=== PATIENT | male | born 1930 | race Caucasian/White ===

== ENCOUNTER 2018-01-28 00:45 | Inpatient (IN) ==
[2018-01-28] MEDS ORDERED: ETOMIDATE 20 MG/10 ML VIAL IV STA (01:07)
[2018-01-28] MEDS ORDERED: ROCURONIUM 100 MG/10 ML VIAL IV STA (01:07)
[2018-01-28] MEDS ORDERED: PROPOFOL 1,000 MG/100 ML BOTTLE IV ONE (01:08)
[2018-01-28 01:17] LABS: Basophils # 0.1 10*3/uL (0.0-0.2); Basophils % 0.3 % (0.0-0.8); Hemoglobin 10.5 GM/DL (14.0-18.0); Immature Granulocytes % 1.4 %; Immature Granulocytes Absolute 0.45 #; Lymphocytes # 6.4 10*3/uL (1.4-4.0); Lymphocytes % 19.5 % (21.2-54.2); Mean Corpuscular HGB Conc 32.8 GM/DL (32-36); Mean Corpuscular Hemoglobin 27 PG (27-34); Mean Corpuscular Volume 81.8 FL (87-102); Mean Platelet Volume 10.3 FL (9.6-12.0); Monocytes # 1.3 10*3/uL (0.11-0.8); Neutrophils # 24.6 10*3/uL (1.4-7.4); Neutrophils % 74.8 % (38.7-73.9); Platelet Count 438 T/CUMM (130-400); Red Blood Count 3.91 MC/CUMM (3.8-5.5); Red Cell Distribution Width 19.1 % (9.3-17.3); White Blood Count 32.9 T/CUMM (4-12)
[2018-01-28] MEDS: PROPOFOL 1,000 MG/100 ML BOTTLE IV SCH ×3 (01:19→22:00)
[2018-01-28 01:29] LABS: INR 1.1; PT Patient Result 11.2 SECS
[2018-01-28 01:45] LABS: Alanine Aminotransferase 22 U/L (16-61); Albumin 2.3 G/DL (3.4-5.0); Alkaline Phosphatase 99 U/L (45-117); Aspartate Amino Transferase 30 U/L (0-37); Bilirubin,Total < 0.39 MG/DL (0.2-1.0); Blood Urea Nitrogen 37 MG/DL (7-18); Calcium 8.8 MG/DL (8.5-10.1); Glucose 321 MG/DL (74-106); Osmolality,Calculated 290.1 MOS/KG (273-304); Potassium 4.1 MMOL/L (3.5-5.1); Sodium 135 MMOL/L (136-145); Total Protein 7.5 G/DL (6.4-8.3)
[2018-01-28 01:46] LABS: Troponin I Only 0.979 NG/ML (0.00-0.045)
[2018-01-28] MEDS ORDERED: LEVOFLOXACIN INJ 750 MG in PREMIX 1 EACH IV STA (01:48)
[2018-01-28] MEDS ORDERED: PIPERACILLIN/TAZOBACTAM 3,375 MG in SODIUM CHLORIDE 0.9% 100 ML IV STA (01:48)
[2018-01-28] MEDS ORDERED: VANCOMYCIN INJ 1,000 MG in SODIUM CHLORIDE 0.9% 250 ML IV STA (01:48)
[2018-01-28] MEDS ORDERED: SODIUM CHLORIDE 0.9% 500 ML IV ONE (01:51)
[2018-01-28 01:55] LABS: Allen Test Positive; Pt O2 Delivery Device Ventilator
[2018-01-28 01:57] LABS: ABG Base Excess -0.9 MMOL/L (-2.5-2.5); ABG HCO3 26.9 MMOL/L (20-26); ABG PCO2 56.9 MM HG (35-48); ABG PH 7.292 (7.35-7.45); ABG PO2 73.8 MM HG (80-95); ABG TCO2 28.6 MMOL/L (23-27)
[2018-01-28] MEDS ORDERED: SODIUM CHLORIDE 0.9% 100 ML IV ONE (02:10)
[2018-01-28] MEDS ORDERED: PIPERACILLIN/TAZOBACTAM 3,375 MG VIAL IV ONE (02:10)
[2018-01-28 02:40] LABS: Lactic Acid 2.9 MMOL/L (0.4-2.0)
[2018-01-28] MEDS ORDERED: SODIUM CHLORIDE 0.9% 1,000 ML IV ONE (02:58)
[2018-01-28] MEDS ORDERED: LEVOFLOXACIN INJ 0 ML IV ONE (03:02)
[2018-01-28] MEDS ORDERED: VANCOMYCIN 1,000 MG VIAL ONE (03:02)
[2018-01-28 03:13] LABS: Band Neutrophils 2 % (0-10); Lymphocytes 23 % (20-55); Segmented Neutrophils 72 % (50-85); Total Cells Counted 100
[2018-01-28 03:20] LABS: ABG HCO3 25.5 MMOL/L (20-26); ABG Oxygen Saturation 99.1 % (95-100); ABG PCO2 51.4 MM HG (35-48); ABG PH 7.314 (7.35-7.45); ABG PO2 207.9 MM HG (80-95); ABG TCO2 27.1 MMOL/L (23-27)
[2018-01-28] MEDS ORDERED: ALBUTEROL 2.5 MG/3 ML NEB RESP TX PRN (03:31)
[2018-01-28] MEDS ORDERED: ONDANSETRON 4 MG/2 ML VIAL IV PRN (03:37)
[2018-01-28] MEDS ORDERED: ROCURONIUM 100 MG/10 ML VIAL IV ONE ×2 (03:40→16:01)
[2018-01-28] MEDS ORDERED: ETOMIDATE 20 MG/10 ML VIAL IV ONE (03:40)
[2018-01-28] MEDS ORDERED: VECURONIUM 10 MG VIAL IV STA (03:49)
[2018-01-28] MEDS ORDERED: VECURONIUM 10 MG VIAL IV ONE (03:50)
[2018-01-28] MEDS ORDERED: DEXTROSE 50% 25 GM/50 ML VIAL IV PRN (03:57)
[2018-01-28] MEDS ORDERED: MAGNESIUM SULF RIDER 4 GM in PREMIX 1 EACH IV PRN (03:57)
[2018-01-28] MEDS ORDERED: POTASSIUM CHLORIDE RIDER 10 MEQ in PREMIX 1 EACH IV PRN (03:57)
[2018-01-28] MEDS ORDERED: MAGNESIUM SULF RIDER 2 GM in PREMIX 1 EACH IV PRN (03:57)
[2018-01-28] MEDS ORDERED: GLUCAGON 1 MG VIAL IM PRN (03:57)
[2018-01-28] MEDS ORDERED: MIDAZOLAM 100 MG in SODIUM CHLORIDE 0.9% 80 ML IV SCH (04:00)
[2018-01-28 04:05] LABS: Elliptocytes Few; Hypochromasia 1+; Platelet Estimate Normal
[2018-01-28 04:06] LABS: Giant Platelets Few
[2018-01-28] MEDS ORDERED: INSULIN REGULAR 100 UNIT/ML SUBCUT SCH ×2 (06:00→10:00)
[2018-01-28] MEDS: MIDAZOLAM 100 MG in SODIUM CHLORIDE 0.9% 80 ML IV SCH (06:30)
[2018-01-28] MEDS: SODIUM CHLORIDE 0.9% 1,000 ML IV SCH ×2 (06:51→16:00)
[2018-01-28] MEDS ORDERED: INSULIN REGULAR 100 UNIT/ML ONE (06:53)
[2018-01-28 07:42] LABS: Basophils # 0.1 10*3/uL (0.0-0.2); Basophils % 0.3 % (0.0-0.8); Hemoglobin 9.7 GM/DL (14.0-18.0); Immature Granulocytes % 1.3 %; Lymphocytes % 16.4 % (21.2-54.2); Mean Corpuscular HGB Conc 31.3 GM/DL (32-36); Mean Corpuscular Hemoglobin 27 PG (27-34); Mean Corpuscular Volume 86.1 FL (87-102); Mean Platelet Volume 9.9 FL (9.6-12.0); Monocytes # 0.3 10*3/uL (0.11-0.8); Neutrophils # 24.5 10*3/uL (1.4-7.4); Platelet Count 355 T/CUMM (130-400); Red Cell Distribution Width 18.9 % (9.3-17.3); White Blood Count 30.3 T/CUMM (4-12)
[2018-01-28 07:48] LABS: ABG Base Excess -2.7 MMOL/L (-2.5-2.5); ABG HCO3 22.2 MMOL/L (20-26); ABG Oxygen Saturation 98.9 % (95-100); ABG PCO2 48.7 MM HG (35-48); ABG TCO2 22.1 MMOL/L (23-27); Allen Test Positive; Pt O2 Delivery Device Ventilator
[2018-01-28 08:15] LABS: Albumin 1.9 G/DL (3.4-5.0); Bilirubin,Total 0.4 MG/DL (0.2-1.0); Calcium 8.1 MG/DL (8.5-10.1); Osmolality,Calculated 293.8 MOS/KG (273-304); Potassium 3.9 MMOL/L (3.5-5.1); Total Protein 6.6 G/DL (6.4-8.3)
[2018-01-28 08:19] LABS: Band Neutrophils 10 % (0-10); Hypochromasia 1+; Lymphocytes 15 % (20-55); Segmented Neutrophils 74 % (50-85); Total Cells Counted 100
[2018-01-28 08:20] LABS: Microcytosis 1+; Platelet Estimate Normal; Troponin I Only 2.78 NG/ML (0.00-0.045)
[2018-01-28] MEDS: FUROSEMIDE 40 MG/4 ML VIAL IV SCH ×2 (09:22→17:00)
[2018-01-28] MEDS: MEROPENEM 1,000 MG in SYRINGE 1 EACH IV SCH ×2 (09:34→21:30)
[2018-01-28] MEDS: PANTOPRAZOLE 40 MG VIAL IV SCH (09:39)
[2018-01-28] MEDS: methylPREDNISolone SOD SUC 40 MG/1 ML VIAL IV SCH ×2 (09:40→17:01)
[2018-01-28] MEDS: ENOXAPARIN 40 MG/0.4 ML SYRINGE SUBCUT SCH (09:41)
[2018-01-28] MEDS: INSULIN GLARGINE 100 UNIT/ML SUBCUT SCH (09:41)
[2018-01-28] MEDS ORDERED: PIPERACILLIN/TAZOBACTAM 3,375 MG in SODIUM CHLORIDE 0.9% 100 ML IV SCH (10:15)
[2018-01-28] MEDS: INSULIN REGULAR 100 UNIT/ML SUBCUT SCH ×3 (12:00→20:34)
[2018-01-28] MEDS ORDERED: LIDOCAINE 2% TOP JELLY 20 ML VIAL INTRAURETH ONE (12:15)
[2018-01-28] MEDS ORDERED: SEVOFLURANE 1 UNIT/15 MINUTE INH ONE (16:00)
[2018-01-28] MEDS ORDERED: PROPOFOL 200 MG/20 ML VIAL IV ONE (16:00)
[2018-01-28] MEDS ORDERED: MIDAZOLAM 2 MG/2 ML VIAL ONE (16:01)
[2018-01-28] MEDS ORDERED: fentaNYL 100 MCG/2 ML VIAL ONE (16:01)
[2018-01-28 20:44] LABS: Apearance,Urine CLOUDY (Clear); Bilirubin,Urine Negative (Negative); Blood, Urine Large mg/dL (Negative); Glucose,Urine (UA) 50 mg/dL (Negative); Hyaline Casts,Urine 8 /LPF (0-3); Ketones,Urine Negative (Negative); Mucus,Urine Occasional /LPF (Occasional); Nitrite,Urine Negative (Negative); Protein,Urine 100 MG/DL; RBC,Urine 1363 /HPF (0-4); Urine Color Red (Yellow); Urine Urobilinogen < 2.0 EU/DL (0.2-1.0); WBC,Urine 23 /HPF (0-6)
[2018-01-29] MEDS: SODIUM CHLORIDE 0.9% 1,000 ML IV SCH ×5 (00:27→22:14)
[2018-01-29] MEDS: INSULIN REGULAR 100 UNIT/ML SUBCUT SCH ×6 (00:37→20:44)
[2018-01-29] MEDS: methylPREDNISolone SOD SUC 40 MG/1 ML VIAL IV SCH ×3 (00:38→16:13)
[2018-01-29] MEDS: LEVOFLOXACIN INJ 750 MG in PREMIX 1 EACH IV SCH (03:05)
[2018-01-29 04:34] LABS: Allen Test Positive; Pt O2 Delivery Device Ventilator
[2018-01-29 04:38] LABS: ABG Base Excess -0.9 MMOL/L (-2.5-2.5); ABG HCO3 23.3 MMOL/L (20-26); ABG Oxygen Saturation 99.2 % (95-100); ABG PCO2 36.9 MM HG (35-48); ABG PH 7.419 (7.35-7.45); ABG PO2 189.6 MM HG (80-95); ABG TCO2 24.5 MMOL/L (23-27)
[2018-01-29] MEDS: MIDAZOLAM 100 MG in SODIUM CHLORIDE 0.9% 80 ML IV SCH (05:27)
[2018-01-29 05:48] LABS: Basophils % 0.2 % (0.0-0.8); Hematocrit 26.6 VOL% (42.0-52.0); Hemoglobin 8.3 GM/DL (14.0-18.0); Immature Granulocytes % 1.7 %; Immature Granulocytes Absolute 0.41 #; Lymphocytes # 5.2 10*3/uL (1.4-4.0); Lymphocytes % 21.3 % (21.2-54.2); Mean Corpuscular HGB Conc 31.2 GM/DL (32-36); Mean Corpuscular Hemoglobin 26 PG (27-34); Mean Corpuscular Volume 83.6 FL (87-102); Mean Platelet Volume 10.3 FL (9.6-12.0); Monocytes # 0.3 10*3/uL (0.11-0.8); Monocytes % 1.1 % (1.7-12.7); Neutrophils # 18.6 10*3/uL (1.4-7.4); Neutrophils % 75.7 % (38.7-73.9); Platelet Count 318 T/CUMM (130-400); Red Blood Count 3.18 MC/CUMM (3.8-5.5); Red Cell Distribution Width 18.9 % (9.3-17.3); White Blood Count 24.6 T/CUMM (4-12)
[2018-01-29 06:06] LABS: Band Neutrophils 2 % (0-10); Giant Platelets Few; Hypochromasia 1+; Lymphocytes 18 % (20-55); Microcytosis Slight; Ovalocytes Slight; Platelet Estimate Adequate; Segmented Neutrophils 79 % (50-85); Total Cells Counted 100
[2018-01-29 06:15] LABS: Calcium 7.7 MG/DL (8.5-10.1); Osmolality,Calculated 291.4 MOS/KG (273-304); Potassium 3.1 MMOL/L (3.5-5.1)
[2018-01-29] MEDS ORDERED: MAGNESIUM SULF RIDER 2 GM in PREMIX 1 EACH IV ONE (08:12)
[2018-01-29] MEDS ORDERED: FUROSEMIDE 20 MG/2 ML VIAL ONE (08:25)
[2018-01-29] MEDS: INSULIN GLARGINE 100 UNIT/ML SUBCUT SCH (08:57)
[2018-01-29] MEDS: FUROSEMIDE 40 MG/4 ML VIAL IV SCH ×2 (08:59→16:05)
[2018-01-29] MEDS: PANTOPRAZOLE 40 MG VIAL IV SCH (09:04)
[2018-01-29] MEDS: MEROPENEM 1,000 MG in SYRINGE 1 EACH IV SCH ×2 (09:07→22:04)
[2018-01-29] MEDS: PROPOFOL 1,000 MG/100 ML BOTTLE IV SCH ×2 (13:30→21:31)
[2018-01-29] MEDS: ENOXAPARIN 40 MG/0.4 ML SYRINGE SUBCUT SCH (16:04)
[2018-01-29] MEDS ORDERED: METOPROLOL TARTRATE 5 MG/5 ML VIAL IV ONE ×2 (18:17→18:19)
[2018-01-29] MEDS ORDERED: fentaNYL 100 MCG/2 ML VIAL IV ONE (19:57)
[2018-01-30] MEDS: INSULIN REGULAR 100 UNIT/ML SUBCUT SCH ×6 (00:08→20:53)
[2018-01-30] MEDS: methylPREDNISolone SOD SUC 40 MG/1 ML VIAL IV SCH ×3 (01:47→17:00)
[2018-01-30] MEDS: PROPOFOL 1,000 MG/100 ML BOTTLE IV SCH ×3 (02:37→18:56)
[2018-01-30] MEDS: LEVOFLOXACIN INJ 750 MG in PREMIX 1 EACH IV SCH (03:32)
[2018-01-30 03:38] LABS: ABG Base Excess 3.8 MMOL/L (-2.5-2.5); ABG HCO3 26.7 MMOL/L (20-26); ABG Oxygen Saturation 98.9 % (95-100); ABG PCO2 33.3 MM HG (35-48); ABG PH 7.522 (7.35-7.45); ABG PO2 167.2 MM HG (80-95); ABG TCO2 27.7 MMOL/L (23-27); Allen Test Positive; Pt O2 Delivery Device Ventilator
[2018-01-30 05:53] LABS: Osmolality,Calculated 305.1 MOS/KG (273-304); Potassium 2.7 MMOL/L (3.5-5.1)
[2018-01-30] MEDS ORDERED: POTASSIUM CHLORIDE INJ 50 MEQ in SODIUM CHLORIDE 0.9% 500 ML IV SCH (07:00)
[2018-01-30] MEDS: MIDAZOLAM 100 MG in SODIUM CHLORIDE 0.9% 80 ML IV SCH (07:09)
[2018-01-30] MEDS: SODIUM CHLORIDE 0.9% 1,000 ML IV SCH ×3 (07:30→16:04)
[2018-01-30] MEDS ORDERED: MIDAZOLAM 100 MG in SODIUM CHLORIDE 0.9% 80 ML IV PRN (09:00)
[2018-01-30] MEDS: ENOXAPARIN 40 MG/0.4 ML SYRINGE SUBCUT SCH (09:33)
[2018-01-30] MEDS: PANTOPRAZOLE 40 MG VIAL IV SCH (09:35)
[2018-01-30] MEDS: FUROSEMIDE 40 MG/4 ML VIAL IV SCH ×2 (09:35→17:00)
[2018-01-30] MEDS: INSULIN GLARGINE 100 UNIT/ML SUBCUT SCH (09:35)
[2018-01-30] MEDS: POTASSIUM CHLORIDE 20 MEQ/15 ML UDCUP PER TUBE SCH ×4 (09:36→20:53)
[2018-01-30] MEDS: ACETAMINOPHEN/CODEINE 120-12 MG/5 ML 12.5 ML UDCUP PO PRN ×3 (09:36→17:01)
[2018-01-30] MEDS: MEROPENEM 1,000 MG in SYRINGE 1 EACH IV SCH ×2 (09:36→20:53)
[2018-01-30] MEDS: ZINC OXIDE PASTE 113 GM TUBE TOP SCH ×2 (12:08→20:54)
[2018-01-30] MEDS ORDERED: INSULIN GLARGINE 100 UNIT/ML SUBCUT SCH (16:30)
[2018-01-30] MEDS ORDERED: INSULIN GLARGINE 100 UNIT/ML SUBCUT ONE (16:30)
[2018-01-31] MEDS: methylPREDNISolone SOD SUC 40 MG/1 ML VIAL IV SCH ×3 (00:50→16:16)
[2018-01-31] MEDS: INSULIN REGULAR 100 UNIT/ML SUBCUT SCH ×6 (00:50→21:08)
[2018-01-31] MEDS: POTASSIUM CHLORIDE 20 MEQ/15 ML UDCUP PER TUBE SCH (00:51)
[2018-01-31] MEDS: ACETAMINOPHEN/CODEINE 120-12 MG/5 ML 12.5 ML UDCUP PO PRN ×3 (02:34→21:32)
[2018-01-31 04:19] LABS: ABG Base Excess 1.8 MMOL/L (-2.5-2.5); ABG Oxygen Saturation 97.2 % (95-100); ABG PCO2 31.5 MM HG (35-48); ABG PH 7.502 (7.35-7.45); ABG TCO2 22.9 MMOL/L (23-27); Allen Test Positive; Pt O2 Delivery Device Ventilator
[2018-01-31] MEDS: LEVOFLOXACIN INJ 750 MG in PREMIX 1 EACH IV SCH (04:36)
[2018-01-31] MEDS: PROPOFOL 1,000 MG/100 ML BOTTLE IV SCH ×2 (06:13→16:17)
[2018-01-31 06:28] LABS: Basophils % 0.2 % (0.0-0.8); Hematocrit 25.5 VOL% (42.0-52.0); Immature Granulocytes % 3.6 %; Immature Granulocytes Absolute 0.34 #; Lymphocytes # 3.5 10*3/uL (1.4-4.0); Lymphocytes % 37.1 % (21.2-54.2); Mean Corpuscular HGB Conc 31.4 GM/DL (32-36); Mean Corpuscular Hemoglobin 26 PG (27-34); Mean Corpuscular Volume 83.6 FL (87-102); Mean Platelet Volume 10.5 FL (9.6-12.0); Monocytes # 0.3 10*3/uL (0.11-0.8); Monocytes % 3.1 % (1.7-12.7); Neutrophils # 5.3 10*3/uL (1.4-7.4); Platelet Count 305 T/CUMM (130-400); Red Blood Count 3.05 MC/CUMM (3.8-5.5); Red Cell Distribution Width 19.2 % (9.3-17.3); White Blood Count 9.4 T/CUMM (4-12)
[2018-01-31 06:50] LABS: Lymphocytes 28 % (20-55); Segmented Neutrophils 68 % (50-85); Total Cells Counted 100
[2018-01-31 06:51] LABS: Giant Platelets Few; Hypochromasia 1+; Microcytosis Slight; Platelet Estimate Adequate
[2018-01-31 06:53] LABS: Calcium 8.1 MG/DL (8.5-10.1); Osmolality,Calculated 319.4 MOS/KG (273-304); Potassium 4.3 MMOL/L (3.5-5.1)
[2018-01-31] MEDS ORDERED: FUROSEMIDE 20 MG/2 ML VIAL ONE (08:39)
[2018-01-31] MEDS: INSULIN GLARGINE 100 UNIT/ML SUBCUT SCH (09:09)
[2018-01-31] MEDS: PANTOPRAZOLE 40 MG VIAL IV SCH (09:10)
[2018-01-31] MEDS: MEROPENEM 1,000 MG in SYRINGE 1 EACH IV SCH ×2 (09:10→21:08)
[2018-01-31] MEDS: FUROSEMIDE 40 MG/4 ML VIAL IV SCH ×2 (09:10→16:16)
[2018-01-31] MEDS: ENOXAPARIN 40 MG/0.4 ML SYRINGE SUBCUT SCH (09:11)
[2018-01-31] MEDS: ZINC OXIDE PASTE 113 GM TUBE TOP SCH ×2 (09:11→21:08)
[2018-02-01] MEDS: INSULIN REGULAR 100 UNIT/ML SUBCUT SCH ×6 (01:09→20:16)
[2018-02-01] MEDS: methylPREDNISolone SOD SUC 40 MG/1 ML VIAL IV SCH ×3 (01:12→16:54)
[2018-02-01] MEDS: PROPOFOL 1,000 MG/100 ML BOTTLE IV SCH (01:12)
[2018-02-01] MEDS: ACETAMINOPHEN/CODEINE 120-12 MG/5 ML 12.5 ML UDCUP PO PRN ×3 (02:40→20:28)
[2018-02-01 04:00] LABS: ABG Base Excess 9.5 MMOL/L (-2.5-2.5); ABG HCO3 32.1 MMOL/L (20-26); ABG Oxygen Saturation 96.7 % (95-100); ABG PCO2 35.5 MM HG (35-48); ABG PH 7.574 (7.35-7.45); ABG PO2 88.1 MM HG (80-95); ABG TCO2 33.2 MMOL/L (23-27)
[2018-02-01] MEDS: LEVOFLOXACIN INJ 750 MG in PREMIX 1 EACH IV SCH (04:13)
[2018-02-01 05:10] LABS: Basophils % 0.3 % (0.0-0.8); Eosinophils % 0.1 % (0.00-10.9); Hematocrit 27.6 VOL% (42.0-52.0); Hemoglobin 8.8 GM/DL (14.0-18.0); Immature Granulocytes % 3.2 %; Immature Granulocytes Absolute 0.33 #; Lymphocytes # 3.8 10*3/uL (1.4-4.0); Lymphocytes % 36.9 % (21.2-54.2); Mean Corpuscular HGB Conc 31.9 GM/DL (32-36); Mean Corpuscular Hemoglobin 26 PG (27-34); Mean Corpuscular Volume 82.4 FL (87-102); Mean Platelet Volume 11.3 FL (9.6-12.0); Monocytes # 0.3 10*3/uL (0.11-0.8); Monocytes % 3.2 % (1.7-12.7); NRBC # 0.06 10*3/uL; Neutrophils # 5.8 10*3/uL (1.4-7.4); Neutrophils % 56.3 % (38.7-73.9); Platelet Count 298 T/CUMM (130-400); Red Blood Count 3.35 MC/CUMM (3.8-5.5); Red Cell Distribution Width 19.5 % (9.3-17.3); White Blood Count 10.2 T/CUMM (4-12)
[2018-02-01 05:22] LABS: Band Neutrophils 1 % (0-10); Giant Platelets Few; Hypochromasia 1+; Lymphocytes 34 % (20-55); Microcytosis Slight; Ovalocytes Slight; Platelet Estimate Adequate; Segmented Neutrophils 58 % (50-85); Total Cells Counted 100
[2018-02-01 05:43] LABS: Calcium 6.5 MG/DL (8.5-10.1); Osmolality,Calculated 311.8 MOS/KG (273-304); Potassium 5.2 MMOL/L (3.5-5.1)
[2018-02-01] MEDS: SODIUM CHLORIDE 0.9% 1,000 ML IV SCH ×2 (05:59→09:20)
[2018-02-01] MEDS: ENOXAPARIN 40 MG/0.4 ML SYRINGE SUBCUT SCH (09:09)
[2018-02-01] MEDS: MEROPENEM 1,000 MG in SYRINGE 1 EACH IV SCH ×2 (09:10→20:16)
[2018-02-01] MEDS: INSULIN GLARGINE 100 UNIT/ML SUBCUT SCH (09:10)
[2018-02-01] MEDS: ZINC OXIDE PASTE 113 GM TUBE TOP SCH ×2 (09:20→20:17)
[2018-02-01] MEDS: PANTOPRAZOLE 40 MG VIAL IV SCH (09:22)
[2018-02-01] MEDS: FUROSEMIDE 40 MG/4 ML VIAL IV SCH ×2 (09:26→16:50)
[2018-02-01] MEDS: glipiZIDE 5 MG TABLET PO SCH ×2 (09:35→20:16)
[2018-02-01] MEDS: DUTASTERIDE 0.5 MG CAPSULE PO SCH (09:35)
[2018-02-01] MEDS: FINASTERIDE 5 MG TABLET PO SCH (09:36)
[2018-02-01] MEDS ORDERED: BELLADONNA/OPIUM 30 MG SUPP RECTAL PRN (14:00)
[2018-02-01] MEDS: TAMSULOSIN 0.4 MG CAPSULE PO SCH (20:16)
[2018-02-02] MEDS: INSULIN REGULAR 100 UNIT/ML SUBCUT SCH ×6 (00:17→20:21)
[2018-02-02] MEDS: methylPREDNISolone SOD SUC 40 MG/1 ML VIAL IV SCH ×3 (01:03→17:03)
[2018-02-02] MEDS: LEVOFLOXACIN INJ 750 MG in PREMIX 1 EACH IV SCH (03:34)
[2018-02-02 06:07] LABS: Calcium 8.5 MG/DL (8.5-10.1); Osmolality,Calculated 302.7 MOS/KG (273-304); Potassium 4.1 MMOL/L (3.5-5.1)
[2018-02-02] MEDS: ACETAMINOPHEN/CODEINE 120-12 MG/5 ML 12.5 ML UDCUP PO PRN ×3 (08:41→23:08)
[2018-02-02] MEDS: DUTASTERIDE 0.5 MG CAPSULE PO SCH (08:42)
[2018-02-02] MEDS: FINASTERIDE 5 MG TABLET PO SCH (08:42)
[2018-02-02] MEDS: glipiZIDE 5 MG TABLET PO SCH ×2 (08:43→20:23)
[2018-02-02] MEDS: PANTOPRAZOLE 40 MG VIAL IV SCH (08:48)
[2018-02-02] MEDS: FUROSEMIDE 40 MG/4 ML VIAL IV SCH ×2 (08:53→17:00)
[2018-02-02] MEDS: MEROPENEM 1,000 MG in SYRINGE 1 EACH IV SCH ×2 (08:55→21:24)
[2018-02-02] MEDS: ENOXAPARIN 40 MG/0.4 ML SYRINGE SUBCUT SCH (08:56)
[2018-02-02] MEDS: INSULIN GLARGINE 100 UNIT/ML SUBCUT SCH (08:58)
[2018-02-02] MEDS: SODIUM CHLORIDE 0.9% 1,000 ML IV SCH ×2 (09:02→20:01)
[2018-02-02] MEDS: ZINC OXIDE PASTE 113 GM TUBE TOP SCH ×2 (09:52→21:25)
[2018-02-02] MEDS: OXYBUTYNIN XL 15 MG TABLET PO SCH (21:25)
[2018-02-02] MEDS: TAMSULOSIN 0.4 MG CAPSULE PO SCH (21:25)
[2018-02-03] MEDS: methylPREDNISolone SOD SUC 40 MG/1 ML VIAL IV SCH ×3 (00:16→21:10)
[2018-02-03] MEDS: INSULIN REGULAR 100 UNIT/ML SUBCUT SCH ×6 (00:16→20:08)
[2018-02-03 03:51] LABS: ABG Base Excess 12.5 MMOL/L (-2.5-2.5); ABG HCO3 36.2 MMOL/L (20-26); ABG Oxygen Saturation 95.7 % (95-100); ABG PCO2 45.5 MM HG (35-48); ABG PH 7.519 (7.35-7.45); ABG PO2 77.2 MM HG (80-95); ABG TCO2 33.4 MMOL/L (23-27); Allen Test Positive
[2018-02-03] MEDS: LEVOFLOXACIN INJ 750 MG in PREMIX 1 EACH IV SCH (04:38)
[2018-02-03 05:49] LABS: Basophils % 0.2 % (0.0-0.8); Hematocrit 30.3 VOL% (42.0-52.0); Hemoglobin 9.5 GM/DL (14.0-18.0); Immature Granulocytes % 1.1 %; Immature Granulocytes Absolute 0.13 #; Lymphocytes # 4.3 10*3/uL (1.4-4.0); Lymphocytes % 37.8 % (21.2-54.2); Mean Corpuscular HGB Conc 31.4 GM/DL (32-36); Mean Corpuscular Hemoglobin 26 PG (27-34); Mean Corpuscular Volume 83.2 FL (87-102); Mean Platelet Volume 10.6 FL (9.6-12.0); Monocytes # 0.3 10*3/uL (0.11-0.8); Monocytes % 2.2 % (1.7-12.7); Neutrophils # 6.7 10*3/uL (1.4-7.4); Neutrophils % 58.7 % (38.7-73.9); Platelet Count 291 T/CUMM (130-400); Red Blood Count 3.64 MC/CUMM (3.8-5.5); Red Cell Distribution Width 19.2 % (9.3-17.3); White Blood Count 11.4 T/CUMM (4-12)
[2018-02-03 06:17] LABS: Calcium 8.1 MG/DL (8.5-10.1); Osmolality,Calculated 283.7 MOS/KG (273-304); Potassium 4.1 MMOL/L (3.5-5.1)
[2018-02-03] MEDS: glipiZIDE 5 MG TABLET PO SCH ×2 (09:20→21:09)
[2018-02-03] MEDS: FINASTERIDE 5 MG TABLET PO SCH (09:20)
[2018-02-03] MEDS: DUTASTERIDE 0.5 MG CAPSULE PO SCH (09:20)
[2018-02-03] MEDS: ACETAMINOPHEN/CODEINE 120-12 MG/5 ML 12.5 ML UDCUP PO PRN ×3 (09:20→20:07)
[2018-02-03] MEDS: ENOXAPARIN 40 MG/0.4 ML SYRINGE SUBCUT SCH (09:27)
[2018-02-03] MEDS: INSULIN GLARGINE 100 UNIT/ML SUBCUT SCH (09:28)
[2018-02-03] MEDS: MEROPENEM 1,000 MG in SYRINGE 1 EACH IV SCH ×2 (09:29→21:10)
[2018-02-03] MEDS: PANTOPRAZOLE 40 MG VIAL IV SCH (09:31)
[2018-02-03] MEDS: FUROSEMIDE 40 MG/4 ML VIAL IV SCH ×2 (09:38→16:23)
[2018-02-03] MEDS: SODIUM CHLORIDE 0.9% 1,000 ML IV SCH (09:38)
[2018-02-03] MEDS: ZINC OXIDE PASTE 113 GM TUBE TOP SCH ×2 (09:50→20:09)
[2018-02-03] MEDS: OXYBUTYNIN XL 15 MG TABLET PO SCH (21:09)
[2018-02-03] MEDS: TAMSULOSIN 0.4 MG CAPSULE PO SCH (21:09)
[2018-02-04] MEDS: INSULIN REGULAR 100 UNIT/ML SUBCUT SCH ×6 (00:17→22:07)
[2018-02-04] MEDS: LEVOFLOXACIN INJ 750 MG in PREMIX 1 EACH IV SCH (03:59)
[2018-02-04] MEDS: DUTASTERIDE 0.5 MG CAPSULE PO SCH (09:06)
[2018-02-04] MEDS: FINASTERIDE 5 MG TABLET PO SCH (09:07)
[2018-02-04] MEDS: glipiZIDE 5 MG TABLET PO SCH ×2 (09:08→21:28)
[2018-02-04] MEDS: MEROPENEM 1,000 MG in SYRINGE 1 EACH IV SCH ×2 (09:10→21:24)
[2018-02-04] MEDS: PANTOPRAZOLE 40 MG VIAL IV SCH (09:11)
[2018-02-04] MEDS: ENOXAPARIN 40 MG/0.4 ML SYRINGE SUBCUT SCH (09:12)
[2018-02-04] MEDS: FUROSEMIDE 40 MG/4 ML VIAL IV SCH (09:12)
[2018-02-04] MEDS: INSULIN GLARGINE 100 UNIT/ML SUBCUT SCH (09:14)
[2018-02-04] MEDS: methylPREDNISolone SOD SUC 40 MG/1 ML VIAL IV SCH ×2 (09:15→21:21)
[2018-02-04] MEDS: ZINC OXIDE PASTE 113 GM TUBE TOP SCH ×2 (09:15→21:29)
[2018-02-04] MEDS: ACETAMINOPHEN/CODEINE 120-12 MG/5 ML 12.5 ML UDCUP PO PRN ×2 (09:16→22:06)
[2018-02-04] MEDS: SODIUM CHLORIDE 0.9% 1,000 ML IV SCH (09:44)
[2018-02-04] MEDS: LISINOPRIL 2.5 MG TABLET PO SCH (10:27)
[2018-02-04] MEDS: FUROSEMIDE 40 MG TABLET PO SCH ×2 (10:27→21:28)
[2018-02-04] MEDS: METOPROLOL SUCCINATE XL 50 MG TABLET PO SCH (10:28)
[2018-02-04] MEDS: PANTOPRAZOLE 20 MG TABLET PO SCH (10:30)
[2018-02-04] MEDS: FERROUS SULFATE 325 MG TABLET PO SCH (10:41)
[2018-02-04] MEDS: CITALOPRAM 20 MG TABLET PO SCH (10:41)
[2018-02-04] MEDS: OXYBUTYNIN XL 15 MG TABLET PO SCH (21:28)
[2018-02-04] MEDS: ATORVASTATIN 80 MG TABLET PO SCH (21:28)
[2018-02-04] MEDS: TAMSULOSIN 0.4 MG CAPSULE PO SCH (21:29)
[2018-02-05] MEDS: LEVOFLOXACIN INJ 750 MG in PREMIX 1 EACH IV SCH (03:55)
[2018-02-05] MEDS: ACETAMINOPHEN/CODEINE 120-12 MG/5 ML 12.5 ML UDCUP PO PRN (06:18)
[2018-02-05] MEDS: INSULIN REGULAR 100 UNIT/ML SUBCUT SCH ×4 (08:55→20:35)
[2018-02-05] MEDS: METOPROLOL SUCCINATE XL 50 MG TABLET PO SCH (09:05)
[2018-02-05] MEDS: LISINOPRIL 2.5 MG TABLET PO SCH (09:05)
[2018-02-05] MEDS: DUTASTERIDE 0.5 MG CAPSULE PO SCH (09:05)
[2018-02-05] MEDS: CITALOPRAM 20 MG TABLET PO SCH (09:05)
[2018-02-05] MEDS: FINASTERIDE 5 MG TABLET PO SCH (09:05)
[2018-02-05] MEDS: FERROUS SULFATE 325 MG TABLET PO SCH (09:05)
[2018-02-05] MEDS: ENOXAPARIN 40 MG/0.4 ML SYRINGE SUBCUT SCH (09:06)
[2018-02-05] MEDS: INSULIN GLARGINE 100 UNIT/ML SUBCUT SCH (09:06)
[2018-02-05] MEDS: FUROSEMIDE 40 MG TABLET PO SCH ×2 (09:06→22:22)
[2018-02-05] MEDS: PANTOPRAZOLE 20 MG TABLET PO SCH (09:06)
[2018-02-05] MEDS: glipiZIDE 5 MG TABLET PO SCH ×2 (09:11→22:22)
[2018-02-05] MEDS: ZINC OXIDE PASTE 113 GM TUBE TOP SCH ×2 (09:15→22:38)
[2018-02-05] MEDS: methylPREDNISolone SOD SUC 40 MG/1 ML VIAL IV SCH (10:09)
[2018-02-05] MEDS: predniSONE 20 MG TABLET PO SCH (12:19)
[2018-02-05] MEDS: SODIUM CHLORIDE 0.9% 1,000 ML IV SCH (12:19)
[2018-02-05] MEDS: TAMSULOSIN 0.4 MG CAPSULE PO SCH (22:21)
[2018-02-05] MEDS: OXYBUTYNIN XL 15 MG TABLET PO SCH (22:21)
[2018-02-05] MEDS: ATORVASTATIN 80 MG TABLET PO SCH (22:22)
[2018-02-06 06:51] LABS: Basophils % 0.2 % (0.0-0.8); Eosinophils % 0.1 % (0.00-10.9); Hematocrit 33.7 VOL% (42.0-52.0); Hemoglobin 10.6 GM/DL (14.0-18.0); Immature Granulocytes % 1.5 %; Immature Granulocytes Absolute 0.27 #; Lymphocytes % 38.4 % (21.2-54.2); Mean Corpuscular HGB Conc 31.5 GM/DL (32-36); Mean Corpuscular Hemoglobin 26 PG (27-34); Mean Corpuscular Volume 83.2 FL (87-102); Mean Platelet Volume 11.7 FL (9.6-12.0); Monocytes # 0.6 10*3/uL (0.11-0.8); Monocytes % 3.3 % (1.7-12.7); Neutrophils # 10.4 10*3/uL (1.4-7.4); Neutrophils % 56.5 % (38.7-73.9); Platelet Count 284 T/CUMM (130-400); Red Blood Count 4.05 MC/CUMM (3.8-5.5); Red Cell Distribution Width 20.3 % (9.3-17.3); White Blood Count 18.3 T/CUMM (4-12)
[2018-02-06 07:21] LABS: Calcium 8.2 MG/DL (8.5-10.1); Osmolality,Calculated 286.7 MOS/KG (273-304); Potassium 4.1 MMOL/L (3.5-5.1)
[2018-02-06 08:35] VITALS: BP 113/71
[2018-02-06] MEDS: INSULIN REGULAR 100 UNIT/ML SUBCUT SCH (08:39)
[2018-02-06] MEDS: ENOXAPARIN 40 MG/0.4 ML SYRINGE SUBCUT SCH (09:00)
[2018-02-06] MEDS: FINASTERIDE 5 MG TABLET PO SCH (09:01)
[2018-02-06] MEDS: CITALOPRAM 20 MG TABLET PO SCH (09:01)
[2018-02-06] MEDS: INSULIN GLARGINE 100 UNIT/ML SUBCUT SCH (09:01)
[2018-02-06] MEDS: METOPROLOL SUCCINATE XL 50 MG TABLET PO SCH (09:01)
[2018-02-06] MEDS: DUTASTERIDE 0.5 MG CAPSULE PO SCH (09:01)
[2018-02-06] MEDS: glipiZIDE 5 MG TABLET PO SCH (09:01)
[2018-02-06] MEDS: LISINOPRIL 2.5 MG TABLET PO SCH (09:01)
[2018-02-06] MEDS: predniSONE 20 MG TABLET PO SCH (09:01)
[2018-02-06] MEDS: FERROUS SULFATE 325 MG TABLET PO SCH (09:01)
[2018-02-06] MEDS: FUROSEMIDE 40 MG TABLET PO SCH (09:01)
[2018-02-06] MEDS: ZINC OXIDE PASTE 113 GM TUBE TOP SCH (09:02)
[2018-02-06] MEDS: PANTOPRAZOLE 20 MG TABLET PO SCH (09:02)
[2018-02-06] MEDS: LEVOFLOXACIN INJ 750 MG in PREMIX 1 EACH IV SCH (09:02)
== END 2018-02-06 10:26 | DRG 871 ==
LOC: EDUNIT# → EDBD → N.ED 00:45 → SUATTDRO 03:31 → N.EDINP 03:31 → N.CC 06:13 → N.2E 02-04 11:40
PROVIDERS: ADMIT Internal Medicine; ATTEND Internal Medicine Geriatric Medicine